=== PATIENT | female | born 1945 | race Caucasian/White ===

== ENCOUNTER 2016-03-01 05:47 | Inpatient (IN) | payer OTHER ==
[2016-02-27 12:09] LABS: % IMMATURE GRANULYOCYTES 0.2 % (0.0-1.1); ABSOLUTE IMMATURE GRANULOCYTES 0.01 10^3/uL (0.00-0.10); ADD DIFF? NO; ADD MORPH? NO; ADD SCAN? NO; ATYPICAL LYMPHOCYTE FLAG 20 (0-99); FRAGMENT RBC FLAG 0 (0-99); HEMATOCRIT 39.5 % (38.0-47.0); HEMOGLOBIN 13.5 g/dL (12.6-16.3); LEFT SHIFT FLG 0 (0-99); LIPEMIA HEMOLYSIS FLAG 90 (0-99); MEAN CELL HEMOGLOBIN 32.7 pg (27.9-34.1); MEAN CELL HEMOGLOBIN CONCENTR. 34.2 g/dL (32.4-36.7); MEAN CELL VOLUME 95.6 fL (81.5-99.8); MEAN PLATELET VOLUME 9.1 fL (8.7-11.7); PLATELET CLUMPS FLAG 0 (0-99); PLATELET COUNT 224 10^3/uL (150-400); RED BLOOD CELL COUNT 4.13 10^6/uL (4.18-5.33); RED CELL DISTRIBUTION WIDTH 12.1 % (11.5-15.2)
[2016-03-01] MEDS ORDERED: LIDOCAINE 1% 5 ML SDV ONE (06:10)
[2016-03-01] MEDS ORDERED: ACETAMINOPHEN 325 MG TAB PO ONE (06:30)
[2016-03-01] MEDS ORDERED: DEXAMETHASONE 4 MG/ML VIAL IVP ONE (06:30)
[2016-03-01] MEDS ORDERED: CHLORHEXIDINE GLUC HIBICLENS 118 ML BTL TP ONE (06:30)
[2016-03-01] MEDS ORDERED: FAMOTIDINE 20 MG TAB PO ONE (06:30)
[2016-03-01] MEDS ORDERED: ROPI/epiNEPH/KETOROLAC JOINT COCKTAIL IU ONE (06:30)
[2016-03-01] MEDS ORDERED: CEFAZOLIN 2 GM/DEXTR 100 ML IV ONE (06:30)
[2016-03-01] MEDS ORDERED: LIDOCAINE 1% 5 ML SDV ID PRN (06:40)
[2016-03-01] MEDS ORDERED: LR 1,000 ML IV ONE (06:40)
[2016-03-01] MEDS ORDERED: CALCIUM CHLORIDE 1 GM/10 ML INJ ONE (06:47)
[2016-03-01] MEDS ORDERED: THROMBIN (RECOMBINANT) 5,000 UNIT VIAL TP ONE (06:47)
[2016-03-01] MEDS ORDERED: ceFAZolin 1 GM/5 ML SYR ONE (06:48)
[2016-03-01] MEDS ORDERED: SCOPOLAMINE HYDROBROMIDE 1.5 MG PATCH TD ONE (07:11)
[2016-03-01] MEDS ORDERED: PROPOFOL/EMULSION 500 MG/50 ML BOTTLE IV ONE (07:22)
[2016-03-01] MEDS ORDERED: LIDOCAINE 2% 5 ML SDV ONE (07:22)
[2016-03-01] MEDS ORDERED: MAGNESIUM HYDROXIDE 30 ML UDCUP PO PRN (07:23)
[2016-03-01] MEDS ORDERED: diphenhydrAMINE 25 MG CAP PO PRN (07:23)
[2016-03-01] MEDS ORDERED: BISACODYL 10 MG SUPP PR PRN (07:23)
[2016-03-01] MEDS ORDERED: PROMETHAZINE HCL 25 MG/ML VIAL IVP PRN (07:23)
[2016-03-01] MEDS ORDERED: POLYETHYLENE GLYCOL 3350 17 GM PKT PO PRN (07:23)
[2016-03-01] MEDS ORDERED: ONDANSETRON 4 MG/2 ML VIAL IVP PRN (07:23)
[2016-03-01] MEDS ORDERED: PHARMACY PAIN CONSULT 1 EA MISC PRN (07:23)
[2016-03-01] MEDS ORDERED: METOCLOPRAMIDE 10 MG/2 ML VIAL IVP PRN (07:23)
[2016-03-01] MEDS ORDERED: DIPHENOXYLATE/ATROPINE LOMOTIL 1 TAB PO PRN (07:23)
[2016-03-01] MEDS ORDERED: traMADol 50 MG TAB PO PRN (07:23)
[2016-03-01] MEDS ORDERED: MIDAZOLAM 2 MG/2 ML VIAL ONE (07:23)
[2016-03-01] MEDS ORDERED: TEMAZEPAM 15 MG CAP PO PRN (07:23)
[2016-03-01] MEDS ORDERED: LACTULOSE 20 GM/30 ML UDCUP PO PRN (07:23)
[2016-03-01] MEDS ORDERED: oxyCODONE IR 5 MG TAB PO PRN (07:23)
[2016-03-01] MEDS ORDERED: ONDANSETRON DISINTEGRATING 4 MG TAB PO PRN (07:23)
[2016-03-01] MEDS ORDERED: CYCLOBENZAPRINE 10 MG TAB PO PRN (07:23)
[2016-03-01] MEDS ORDERED: PROMETHAZINE HCL 25 MG SUPPR PR PRN (07:23)
[2016-03-01] MEDS ORDERED: KETOROLAC 30 MG/1 ML SDV IVP PRN (07:23)
[2016-03-01] MEDS ORDERED: LR 1,000 ML IV SCH (07:30)
[2016-03-01] MEDS ORDERED: PHENYLEPHRINE HCL 100 MCG/ML SYR ONE ×2 (07:45→08:50)
[2016-03-01] MEDS ORDERED: epHEDrine SULFATE 10 MG/ML SYR ONE (07:59)
[2016-03-01] MEDS ORDERED: ONDANSETRON 4 MG/2 ML VIAL ONE (08:44)
[2016-03-01] MEDS ORDERED: DEXAMETHASONE 4 MG/ML VIAL ONE (08:44)
[2016-03-01] MEDS ORDERED: KETOROLAC 30 MG/1 ML SDV ONE (08:44)
[2016-03-01] MEDS ORDERED: SKIN ADHESIVE (DERMABOND) 1 EACH TP ONE ×2 (09:43→10:03)
[2016-03-01] MEDS ORDERED: fentaNYL 100 MCG/2 ML INJ ONE ×2 (10:21→10:41)
--- NOTE | 2016-03-01 10:57 | DX ---
Portable AP Pelvis Centered at the Hips March 01, 2016 10:34 a.m. Clinical History: 70-year-old female in the PACU after a right hip arthroplasty. Comparison Study: None currently available. Findings: The patient has undergone a complete right hip arthroplasty, with anatomic alignment of the femoral and acetabular components. The intramedullary que is well-centered. There is normally-expect ed postoperative air in the soft tissues. The left hip is notable for some mild acetabular periarticu lar degenerative spurring. The ischial pubic rami are intact. There are phleboliths over the pelvis. The iliac crests have been excluded. Impression: Status post right hip arthroplasty, with anatomic alignment.
[2016-03-01] MEDS: ACETAMINOPHEN 325 MG TAB PO SCH ×2 (12:22→17:58)
[2016-03-01] MEDS: FERROUS SULFATE 140 MG TAB.ER PO SCH (12:23)
[2016-03-01] MEDS: SENNOSIDES/DOCUSATE SODIUM TAB PO SCH ×2 (12:24→22:01)
[2016-03-01] MEDS: ceFAZolin 2 GM/DEXTROSE 100 ML IV SCH ×2 (13:20→22:01)
[2016-03-01 19:19] VITALS: RESP 16
[2016-03-01] MEDS: FAMOTIDINE 20 MG TAB PO SCH (22:02)
[2016-03-01] MEDS: ASPIRIN 325 MG TAB PO SCH (22:10)
[2016-03-02] MEDS: ACETAMINOPHEN 325 MG TAB PO SCH ×3 (01:19→11:40)
[2016-03-02 04:49] LABS: HEMATOCRIT 26.5 % (38.0-47.0); HEMOGLOBIN 9.2 g/dL (12.6-16.3)
[2016-03-02] MEDS: SENNOSIDES/DOCUSATE SODIUM TAB PO SCH (09:05)
[2016-03-02] MEDS: ASPIRIN 325 MG TAB PO SCH (09:05)
[2016-03-02] MEDS: FAMOTIDINE 20 MG TAB PO SCH (09:06)
[2016-03-02] MEDS: FERROUS SULFATE 140 MG TAB.ER PO SCH (09:06)
[2016-03-02 11:45] VITALS: BP 93/50; PULSE 85; TEMP 98.9; O2SAT 98
--- NOTE | 2016-03-02 15:19 | SOAPPROG ---
SOAP Progress Note Assessment/Plan: Assessment: S/P Right DANIEL, doing well Plan: Home today 03/02/16 15:16 Subjective: No c/o pain. Anxious to go home Objective: Vital Signs Temp Pulse Resp BP Pulse Ox 37.2 C 85 16 93/50 L 98 03/02/16 11:43 03/02/16 11:43 03/02/16 11:43 03/02/16 11:43 03/02/16 11:43 Laboratory Results 03/02/16 04:30 03/01/16 03/02/16 03/03/16 05:59 05:59 05:59 Intake Total 2618 Output Total 1150 Balance 1468 Dressing dry and intact. Legs lengths appear equal N/V intact ICD10 Worksheet Patient Problems: Problems Problem Status Diagnosed Osteoarthrosis, hip, localized Acute - ICD10 Problem Qualifiers (1) Osteoarthrosis, hip, localized
--- NOTE | 2016-03-02 15:24 | PDIAF ---
- Diagnosis Diagnosis: Hip osteoarthritis Code Status: Full Code - Medication Management Discharge Medications: Medications to Continue on Transfer NK [No Known Home Meds] 02/25/16 [Last Taken Unknown] Discharge Medications: Refer to the Discharge Home Medication list for PRN reason. PICC Care - Routine: N/A - Orders Services needed: Home Care, Physical Therapy, Occupational Therapy Home Care Face to Face: I certify that this patient was under my care and that I had the required mejk-io-yaat encounter meeting the encounter requirements on the discharge day. My findings support the fact that the patient is homebound as defined in CMS Chapter 7 Medicare Benefits Manual 30.1.1, The condition of the patient is such that there exists a normal inability to leave home and consequently, leaving home would require a considerable and taxing effort. Diet Recommendation: no restrictions on diet Diet Texture: Regular Texture Diet Wound Care Instructions: Keep wound covered and dry Activity/Weight Bearing Restrictions: Hip precautions. PWB 25 percent x 2 weeks - Follow Up Care Current Providers and Referrals: Janene Stevens MD [Medical Doctor] - Hamida Adams MD [Primary Care Provider] -
--- NOTE | 2016-03-03 08:36 | GOP ---
[f rep st] OPERATIVE REPORT DATE OF OPERATION: 03/01/2016 SURGEON: Janene Stevens MD COMMUNICATIONS SPECIALIST: Gene Guillaume CFA. ANESTHESIA: General with spinal. PREOPERATIVE DIAGNOSIS: Severe osteoarthritis, right hip. POSTOPERATIVE DIAGNOSIS: Severe osteoarthritis, right hip. PROCEDURE PERFORMED: Right total hip arthroplasty. FINDINGS: Preoperative x-rays of the patient's right hip demonstrated severe osteoarthritis. The pa tient had complete loss of the cartilage space in the hip joint. She had periarticular spurring. 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 At the dillan e of surgery, these findings were confirmed. The patient had complete loss of the articular cartilag e on the femoral head and in the acetabulum. An uncemented [place] total hip arthroplasty was perfor med. A size 9, 127-degree neck angle Secur-Fit Max porous-coated stem was press-fit into position in the femur, and a size 50 titanium acetabular component was press-fit on the acetabular side. A 10-d egree elevated Trident cross-linked polyethylene insert was placed in the metal backing of the acetab ulum with an elevation placed at the 9 o'clock position. A 32 mm, +0 neck length Biolox ceramic femo ral head was placed on the C taper of the stem. Following implantation of the components, the hip wa s taken through a range of motion and noted to be stable in 90 degrees of flexion with 10 degrees of adduction and 45 degrees of internal rotation, as well as full extension and external rotation. The leg lengths appeared symmetrical on the table. ESTIMATED BLOOD LOSS: 150 cc. DESCRIPTION OF PROCEDURE: The patient was taken to the operating room, placed in supine position on the operating table. Following placement of a spinal block and induction of adequate general anesthe christy, she was turned to the lateral decubitus position on the PEG board and carefully positioned and s ecured. The right hip and leg were then prepped and draped in the usual sterile manner. The patient received 2 g of IV Ancef. A curvilinear incision was made centered over the greater trochanter and extending proximally and distally. The incision measured approximately 9-10 cm. The incision was ca rried down through the subcutaneous tissue to the IT band. The IT band was split in line with the in cision and retracted with a [place]arnley retractor. Care was taken to protect the sciatic nerve througho ut the procedure. The short rotators of the hip were then identified and hemostasis was obtained. T he piriformis was tagged and taken down. The capsule was incised in a T-fashion and tagged for later repair. The hip was then dislocated and the femoral neck cut was made. The neck cut was made appro ximately 1 fingerbreadth above the lesser trochanter. The femur was then prepared. It was reamed up to a size 9 and then the 7,8 and 9 broaches were utilized. The lateralizing reamer was also utilize d. An excellent fit was noted with the size 9 broach and that was left in place while the acetabulum was addressed. The femur was then placed anteriorly and retracted, and our attention was turned to the acetabulum. Once adequate exposure was obtained, the labrum was excised. The acetabulum was the n reamed starting at 45 mm and increasing up to 49 mm. A good bed of bleeding bone was obtained. Th e reaming was carried to the fovea. A trial reduction was performed with a 50 trial and good fit was noted. The implants were then opened and a size 50 titanium cup was press-fit into position. It wa s impacted and it was stable. The polyethylene insert was then placed in the metal backing. Attenti on was turned back to the femur. The broach was removed and everything was irrigated out and then th e stem was inserted. A trial reduction was performed with a 32 mm, +0 neck length head and the hip w as stable and leg lengths were equal. The trial head was removed and the Biolox set was opened and i mpacted on the C-taper. The hip was then reduced and taken through a range of motion again and noted to be stable. The wound was thoroughly irrigated out and joint cocktail was injected in the anterio r and posterior aspects of the joint capsule. The capsule was closed using #2 FiberWire. The pirifo rmis was reattached to the greater trochanter using #2 FiberWire. The ITB band was then closed using #2 FiberWire in a [id number] fashion. The subcutaneous tissues were closed using 2-0 Vicryl an d the skin was closed using 3-0 Monocryl in a running subcuticular fashion. Steri-Strips and sterile dressings were applied. The patient tolerated the procedure well and there were no complications. Estimated blood loss 150 cc. Final sponge, needle counts were correct. The patient was transported to the recovery room in good condition. /[id number]/MODL
== END 2016-03-02 16:03 | disposition home health service (06) | DRG 470 ==
LOC: F3N 05:47
PROVIDERS: ADMIT Orthopaedic Surgery; ATTEND Orthopaedic Surgery
PROC: 0SR904Z Replacement of Right Hip Joint with Ceramic on Polyethylene Synthetic Substitute, Open Approach (ICD-10-PCS; principal; 2016-03-01 07:15)
DX: M16.11 Unilateral primary osteoarthritis, right hip (principal)
CPT/HCPCS: 97110-GP; 97116-GP; 97161-GP; 97165-GO; 97530-GP; G8978-GP-CK; G8979-GP-CI; G8980-GP-CI; G8987-GO-CI; G8988-GO-CI; G8989-GO-CI; J0171; J0690; J1100; J1885; J2250; J2370; J2405; J2704; J2795; J3010